=== PATIENT | female | born 1935 | race Caucasian/White ===

== ENCOUNTER → 2016-06-15 | Outpatient (CLI) | payer OTHER, MEDICARE ==
[~2016-06-15] MED LIST: CALCTAB7 PO; LEVO100T PO; LEVO112T2 PO; NSNN50; PRAV20TA PO; ZYRUNK
== END | disposition home or self-care (01) ==
LOC: C.LABVPSUW 09:41
PROVIDERS: ATTEND Internal Medicine Critical Care Medicine
DX: E03.9 Hypothyroidism, unspecified (principal)

== ENCOUNTER → 2017-06-15 | Outpatient (CLI) | payer OTHER, MEDICARE ==
[2017-06-15 09:26] LABS: BLOOD UREA NITROGEN 15 mg/dl (7-18); CALCIUM 8.7 mg/dl (8.5-10.1); CARBON DIOXIDE 26 mmol/L (21-32); GLUCOSE 92 mg/dl (70-99); POTASSIUM 3.7 mmol/L (3.5-5.1); SODIUM 138 mmol/L (136-145)
== END | disposition home or self-care (01) ==
LOC: C.LABVPSUW 08:59
PROVIDERS: ATTEND Internal Medicine Critical Care Medicine
DX: E03.9 Hypothyroidism, unspecified (principal); N28.9 Disorder of kidney and ureter, unspecified

== ENCOUNTER → 2017-12-20 | Outpatient (CLI) | payer OTHER, MEDICARE | END | disposition home or self-care (01) | LOC: C.LABVPSUW 08:28 | PROVIDERS: ATTEND Internal Medicine Critical Care Medicine | DX: E03.9 Hypothyroidism, unspecified (principal) ==

== ENCOUNTER 2018-05-16 14:50 | Inpatient (IN) ==
--- NOTE | 2018-05-16 15:54 | XRay Report ---
XR hip RT 2-3V w pelvis HISTORY: 82 years-old Female fall, right hip pain acute right-sided pain status post fall COMPARISON: None available TECHNIQUE: AP view of the pelvis with 2 views of the right hip FINDINGS: Demineralized appearance of the bones. 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 Degenerative changes of the pubic symphysis, SI joints and imaged lower lumbar spine. There is an acute transcervical fracture of the right femur with 8 mm superior lateral displacement and approx imately 9 mm cortical impaction. Mild adjacent soft tissue swelling. No acute dislocation. Soft tissu es are unremarkable. IMPRESSION: Acute mildly displaced and mildly impacted transcervical fracture of the right femur. The above report was generated using voice recognition software. It may contain grammatical, syntax o r spelling errors. Electronically signed by: Bharat Nieves M.D. 05/16/2018 3:52 PM
[2018-05-16] MEDS ORDERED: HYDROmorphone INJ 0.5 MG/0.5 ML SYR IV PRN ×2 (15:57)
[2018-05-16] MEDS ORDERED: SODIUM CHLORIDE 0.9% 1000ML 1,000 ML IV SCH (16:00)
[2018-05-16 16:24] LABS: Basophils # (auto) 0.05 K/uL (0-0.2); Basophils % (auto) 0.7 %; Eosinophils # (auto) 0.08 K/uL (0-0.5); Eosinophils % (auto) 1.1 %; Hematocrit (blood only) 38.4 % (37-47); Hemoglobin 12.5 g/dL (12.0-16.0); Immature Granulocytes # (auto) 0.02 K/uL (0.00-0.02); Immature Granulocytes % (auto) 0.3 %; Lymphocytes # (auto) 1.68 K/uL (1.2-3.4); Lymphocytes % (auto) 22.3 %; Mean Corpuscular Hgb Conc 32.6 g/dL (32-36); Mean Corpuscular Volume 89.1 fL (80-100); Mean Platelet Volume 8.3 fL (7.4-10.4); Monocytes % (auto) 5.3 %; Neutrophils # (auto) 5.31 K/uL (1.4-6.5); Neutrophils % (auto) 70.3 %; Platelet Count 366 K/uL (130-400); RDW Coefficient of Variation 14.4 % (11.5-14.5); RDW Standard Deviation 47.1 fL (36.4-46.3); Red Blood Count 4.31 M/uL (4.2-5.4); White Blood Count 7.54 K/uL (4.8-10.8)
[2018-05-16 16:31] LABS: BUN Creatinine Ratio 15.2 (10-20); Calcium 8.9 mg/dl (8.5-10.1); Creatinine Clr Calc Pharmacy 39.6 ml/min; Est GFR (African American) 69.5; Est GFR (Non-African American) 59.9; Potassium 3.9 mmol/L (3.5-5.1)
--- NOTE | 2018-05-16 16:41 | XRay Report ---
XR chest 1V portable HISTORY: 82 years-old Female fall acute chest trauma status post fall COMPARISON: None available TECHNIQUE: Portable semierect AP view of the chest FINDINGS: Cardiomediastinal and hilar silhouettes are within normal limits. Mild biapical pleural thickening/sc arring. No pneumothorax, pleural effusion or overt pulmonary edema. Ill-defined subsegmental opacitie s of the lateral left lung base and right cardiophrenic angle suggests atelectasis. No lobar airspace consolidation. Degenerative changes of the shoulders and spine. IMPRESSION: No acute process. The above report was generated using voice recognition software. It may contain grammatical, syntax o r spelling errors. Electronically signed by: Bharat Nieves M.D. 05/16/2018 4:40 PM
--- NOTE | 2018-05-16 16:42 | XRay Report ---
XR femur RT 2V routine CLINICAL HISTORY: fall, right hip fracture COMPARISON: Right hip radiographs performed earlier today. FINDINGS: Alignment of the displaced impacted right femoral neck fracture is similar to previous exa m. No additional right femoral fractures are noted. Alignment of the right knee is anatomic. No right knee joint effusion. No proximal right tibial or fibular fractures present. IMPRESSION: 1. Acute displaced right femoral neck fracture. 2. No additional right femoral fractures. No proximal right tibial or fibular fracture. Electronically signed by: Scott Gomez M.D. 05/16/2018 4:41 PM
--- NOTE | 2018-05-16 16:48 | History & Physical Report ---
Date of Service May 16, 2018 Assessment & Plan (1) Closed right hip fracture: - Admit to med/surg - Ortho consultation- [facility], Dr. Dc - Pain control with tylenol 1000 mg Q8H, morphine sulfate 0.25 mg IV Q2H prn for breakthrough pain. Bowel regimen, no chemical anticoagulation in anticipation of surgical procedure - Teds, scds to nonaffected leg - Preop ancef 2g IV ordered - NPO after midnight, pt last oral intake was at 11:00. - Maintain urinary catheter. - Labs are WNL - CXR appears clear - incentive spirometry ordered for possible atelectasis. No respiratory complaints. - EKG reviewed and without significant findings (2) HLD (hyperlipidemia): - Cont pravastatin - Check lipid panel with am labs for completeness (3) Hypothyroid: - Continue synthroid 100 mcg daily. (4) DVT prophylaxis: teds, scds, no chemical anticoagulation in the setting of surgical procedure. History of Present Illness Primary Care Provider: NO PCP This is a 82 yo F with PMHx of hypothyroidism, HLD, who presents after a mechanical fall. She was attempting a new form of exercise of beach volleyball at [facility] she [facility], and her sneaker caught on carpeted surface and she fell to the right and hit her head. Patient denies that she hit her head, LOC, other areas of trauma, laceration or abrasions. Patient denies feeling dizzy or lightheaded prior to the fall. Her daughter, Emy Rebecaluciano [place], is present at bedside and supports the history. The only medication to note that she takes daily is Synthroid and pravastatin. Patient notes she is was unable to bear weight on the right leg, and was brought in by EMS. Patient denies having any current pain. Pt typically ambulates without assistive devices, no history of smoking, has 2 ounces of wine nearly daily. He has no prior medical history including cardiac or pulmonary issues. Last time the patient was in the hospital was to give to her 56-year-old son. Allergies Allergy/AdvReac Type Severity Reaction Status Date / Time No Known Drug Allergies Allergy Unknown none Verified 06/08/15 09:45 Chlorine Allergy Unknown chest Uncoded 06/08/15 09:45 congetion, cough Home Medications Home Medications Medication Instructions Recorded Confirmed Type levothyroxine 100 mcg PO DAILY 05/16/18 05/16/18 History pravastatin 40 mg PO DAILY 05/16/18 05/16/18 History vit C-vit [id number] 1 cap PO DAILY 05/16/18 05/16/18 History [Ocuvite] Past Med/Surg History Medical History Closed right hip fracture (Acute) HLD (hyperlipidemia) Hypothyroid DVT prophylaxis Surgical History Frozen shoulder syndrome (Resolved) Social History Current Living Situation: Other Current Living Situation Comment: Independent living; [facility] current occupational status: retired Other Information That Helps Us Care for You: No Feels Safe at Home: Yes Safety Concerns: Feels Safe At This Time Smoking Status: Never smoker Do You Dip or Chew Tobacco: No Second Hand Exposure: No Hx Alcohol Use: Yes Alcohol type: wine Alcohol Intake Frequency: a few times a week Hx Substance Use: No Beliefs That Will Affect Care: None Preferred Language: [place] Communication Ability: Effective Biological Chemist Required: No Review of Systems Constitutional: No fever, sweats or chills Eyes: No diplopia, no worsening or blurred vision ENT: normal hearing, no trouble swallowing Respiratory: No cough, sputum, dyspnea at rest or on exertion Cardiovascular: No chest pain, tightness or palpitations Abdomen: No pain, nausea, vomiting, diarrhea or constipation Musculoskeletal: R hip pain well controlled, no other joint pain, calf pain, or swelling Neurologic: No weakness, numbness/tingling, or balance problems Psychiatric: No anxiety or depression Skin: No rash or itch Physical Exam 2 Vital Signs (Past 24 Hours): Last Vital Signs Temp 36.8 C 05/16/18 14:55 Pulse 80 05/16/18 16:15 Resp 16 05/16/18 16:15 BP 156/76 H 05/16/18 16:15 Pulse Ox 98 05/16/18 16:15 Physical Exam: General: awake, alert, no apparent distress Head: Normocephalic, atraumatic ENT: PERRL, EOMI, no pharyngeal exudate, mucous membranes moist Chest: Clear to auscultation, on room air, no adventitious breath sounds Cardiac: Regular rate and rhythm, no murmur, no JVD, normal peripheral pulses, good capillary refill Abdominal: NABS x 4 quadrants, soft, nontender to palpation, no rebound, guarding or tenderness, + schneider catheter in place draining clear yellow urine. Extremities: + R leg shortened and externally rotated, otherwise normal inspection, no peripheral edema or erythema, calfs nontender to palpation Psych: Normal mood and affect Neuro: AAO x 3, no gross motor deficits, RLE strength/ROM not assessed, speech is clear, no peripheral sensory deficits Results & Data Diagnostic Findings XR hip RT 2-3V w pelvis HISTORY: 82 years-old Female fall, right hip pain acute right-sided pain status post fall COMPARISON: None available TECHNIQUE: AP view of the pelvis with 2 views of the right hip FINDINGS: Demineralized appearance of the bones. Moderate osteoarthritis of the bilateral femoral acetabular joints. Degenerative changes of the pubic symphysis, SI joints and imaged lower lumbar spine. There is an acute transcervical fracture of the right femur with 8 mm superior lateral displacement and approximately 9 mm cortical impaction. Mild adjacent soft tissue swelling. No acute dislocation. Soft tissues are unremarkable. IMPRESSION: Acute mildly displaced and mildly impacted transcervical fracture of the right femur. XR femur RT 2V routine CLINICAL HISTORY: fall, right hip fracture COMPARISON: Right hip radiographs performed earlier today. FINDINGS: Alignment of the displaced impacted right femoral neck fracture is similar to previous exam. No additional right femoral fractures are noted. Alignment of the right knee is anatomic. No right knee joint effusion. No proximal right tibial or fibular fractures present. IMPRESSION: 1. Acute displaced right femoral neck fracture. 2. No additional right femoral fractures. No proximal right tibial or fibular fracture. XR chest 1V portable HISTORY: 82 years-old Female fall acute chest trauma status post fall COMPARISON: None available TECHNIQUE: Portable semierect AP view of the chest FINDINGS: Cardiomediastinal and hilar silhouettes are within normal limits. Mild biapical pleural thickening/scarring. No pneumothorax, pleural effusion or overt pulmonary edema. Ill-defined subsegmental opacities of the lateral left lung base and right cardiophrenic angle suggests atelectasis. No lobar airspace consolidation. Degenerative changes of the shoulders and spine. IMPRESSION: No acute process. ECG Additional Comments: 16-MAY-2018 16:09:09 [facility] Poor data quality, interpretation may be adversely affected Normal sinus rhythm with sinus arrhythmia Left ventricular hypertrophy with QRS widening Cannot rule out Septal infarct , age undetermined Abnormal ECG When compared with ECG of 05-MAR-2013 11:54, QRS duration has increased Minimal criteria for Septal infarct are now Present QT has lengthened Vent. rate 86 BPM WI interval 164 ms QRS duration 116 ms QT/QTc 404/483 ms P-R-T axes 68 -21 47 Code Status & VTE Plan Code Status DNR Supervising Physician Co-Signing Physician Notes Patient seen and examined, chart reviewed, case discussed with FABIENNE Ward and I agree with her assessment and plan as documented above. Briefly, patient is a healthy 82yo female with history of hypothyroidism s/p mechanical fall [place] today resulting in right hip fracture. Patient presently doing well, pain well controlled. Exam: afebrile, HD stable, NAD. Tenderness of right hip otherwise exam unremarkable Labs and images reviewed. Assessment/Plan: will admit to med-surge. Pain control. Orthopedic consultation - appreciate assistance with this case
[2018-05-16 17:11] LABS: INR 1.1 (0.9-1.1); Partial Thromboplastin Time 24.8 Seconds (21.0-31.0); Prothrombin Time 10.8 Seconds (9.0-12.0)
[2018-05-16 17:21] LABS: Appearance Urine Clear (Clear); Bilirubin Urine Negative (Negative); Color Urine Yellow; Glucose Urine UA Negative (Negative); Ketones Urine Negative (Negative); Leukocyte Esterase Urine Negative (Negative); Nitrite Urine Negative (Negative); Protein Urine Negative (Negative); Specific Gravity Urine 1.014 (1.000-1.030); Urobilinogen Urine Negative (Negative); pH Urine 6.5 (4.5-7.5)
[2018-05-16] MEDS ORDERED: SOD PHOSPHATE/SOD BIPHOSPHATE ENEMA 132 ML BTL PR PRN (18:48)
[2018-05-16] MEDS ORDERED: MAGNESIUM HYDROXIDE SUSP 30 ML UDC PO PRN (18:48)
[2018-05-16] MEDS ORDERED: MoRPHine SULFATE 2 MG/ML CARP IV PRN (18:48)
[2018-05-16] MEDS ORDERED: NALOXONE HCL 0.4 MG/1 ML VIAL/CARP IV PRN (18:48)
[2018-05-16] MEDS ORDERED: BISACODYL 10 MG SUPP PR PRN (18:48)
[2018-05-16] MEDS ORDERED: ONDANSETRON INJ 2 MG/ML 2 ML VIAL IV PRN (18:48)
--- NOTE | 2018-05-16 19:01 | Emergency Department Note ---
Entered by Brett Medellin acting as a scribe for ED Provider Note CHIEF COMPLAINT: Right hip pain HISTORY OF PRESENT ILLNESS: The patient is an 81 year old feamle who presents to the Emergency Room with complaints of constant pain in her right hip that began shorly prior to arrival following a falling episode. The patient states that she was walking earlier today when her "sneaker caught on the rug" and she was thrown forward. She notes pain in her right hip following the fall and she denies any other injuries. She rates the severity of her current pain as a 2/10. She did not hit her head or lose consciousness. Pt denies fevers, chills, diaphoresis, visual changes, neck pain, chest pain, breathing difficulties, nausea, vomiting, abdominal pain, back pain, melena, hematochezia, urinary symptoms, numbness, weakness, lymphadenopathy, rash, or other complaints. REVIEW OF SYSTEMS: See HPI for pertinent positives and negatives. A total of ten systems were reviewed and were otherwise negative. PMHx/PSHx: Hypothyroidism Renal insufficiency HLD SOCIAL HISTORY: Patient lives at home. PHYSICAL EXAM: GENERAL: Awake, alert, uncomfortable-appearing, in no distress HENT: Normocephalic, atraumatic. Oropharynx unremarkable. EYES: PERRL. Normal conjunctiva. Sclera non-icteric. NECK: Inspection normal. Non-tender. Supple. No nuchal rigidity. FROM. No masses. RESPIRATORY: Clear to auscultation. No wheezes. No rales. Normal respiratory effort. CARDIAC: Normal rate. Normal rhythm. No murmurs. No rubs. Extremities warm and well perfused. Pulses equal. No JVD. GI: Soft, non-distended. No tenderness to palpation. No rebound or guarding. No masses. RECTAL: Deferred. MUSCULOSKELETAL: Atraumatic. Chest examination reveals no tenderness. The back is symmetrical on inspection without obvious abnormality. There is no CVA tenderness to palpation. No joint edema. LOWER EXTREMITIES: Right hip tenderness on exam. The right leg is shortened. NEURO: Normal sensorium. No sensory or motor deficits noted. SKIN: No rash or jaundice noted. EMERGENCY DEPARTMENT COURSE: 1548: Past medical records reviewed. The patient was evaluated in room C12, and a complete history and physical examination were performed. 1617: I reviewed the patient's case with Dr. Dc [facility]. He will see the patient in consult. Asks I admit the patient to medicine. 1635: I reviewed the patient's case with Dr. Donato Barros [facility]. She will evaluate the patient for further management. MEDICAL DECISION MAKING: Prior records reviewed and summarized above. Triage Nursing notes reviewed and agree them. Additional history obtained from patient's daughter.. The patient's history was concerning for traumatic injury. Differential diagnosis: Etiologies such as fracture, dislocation, neurovascular compromise, compartment syndrome, soft tissue injury, as well as others were entertained. Physical examination: Consistent with an isolated hip injury. ER treatment provided: IV lock Patient declined analgesia NPO Bedrest On reassessment the patient felt better. Diagnostics interpreted by me: ECG: No acute ischemia The labs revealed an unremarkable CBC, coags, and chemistry panel. Imaging studies: Xrays as above. The patient has an isolated hip fracture and will need admission to the hospital. Consultation: A consultation was placed with orthopedics. The case was discussed and diagnostics were reviewed. Internal medicine admission and preoperative clearance was recommended. Consultation was placed with internal medicine. The patient was evaluated in the ER for further treatment. IMPRESSION: Right hip fracture. PLAN: Admitted to [facility] hospitalist service. The scribe's documentation has been prepared under my direction and personally reviewed by me in its entirety. I confirm that the note above accurately reflects all work, treatment, procedures, and medical decision making performed by me. Impression & Plan Closed fracture of right hip Past Med/Surg History Medical History Closed right hip fracture (Acute) HLD (hyperlipidemia) Hypothyroid DVT prophylaxis Surgical History Frozen shoulder syndrome (Resolved) Social History Current Living Situation: Spouse Current Living Situation Comment: [place] current occupational status: retired Feels Safe at Home: Yes Smoking Status: Never smoker Results & Data Vital Signs Vital Signs - 24 hr 05/16/18 14:55 05/16/18 16:15 05/16/18 18:01 Temperature 36.8 C Temperature Source Oral Sepsis Recent Fever Within 48 Hours No Sepsis New/Unexplained Change in Mental Status No Sepsis Action Taken by Nursing No Action Required Pulse Rate 95 H Pulse Rate [Apical] 80 68 Pulse Rhythm Regular Pulse Rhythm [Apical] Regular Regular Pulse Strength Normal Pulse Strength [Apical] Normal Normal Respiratory Rate 16 16 16 Respiratory Effort / Characteristics Non-Labored Spontaneous Non-Labored Spontaneous Non-Labored Spontaneous Respiratory Depth Normal Normal Normal Respiratory Pattern Regular Regular Regular Blood Pressure 150/77 H Blood Pressure [Right Arm] 156/76 H 150/79 H Blood Pressure Mean 101 Blood Pressure Mean [Right Arm] 102 102 Blood Pressure Position Lying Blood Pressure Position [Right Arm] Lying Lying Pulse Oximetry 95 98 96 Oxygen Delivery Method Room Air Room Air Room Air Home Medications Current Medication List: was personally reviewed by me Laboratory Data Attestation: I reviewed the patient's lab results. Result diagrams: 05/16/18 15:00 05/16/18 15:00 Lab Results 05/16/18 05/16/18 05/16/18 Range/Units 15:00 15:00 16:25 WBC 7.54 (4.8-10.8) K/uL RBC 4.31 (4.2-5.4) M/uL Hgb 12.5 (12.0-16.0) g/dL Hct 38.4 (37-47) % MCV 89.1 (80-100) fL MCH 29.0 (25-34) pg MCHC 32.6 (32-36) g/dL RDW Std Deviation 47.1 H (36.4-46.3) fL RDW Coeff of Maya 14.4 (11.5-14.5) % Plt Count 366 (130-400) K/uL MPV 8.3 (7.4-10.4) fL Immature Gran % (Auto) 0.3 % Neut % (Auto) 70.3 % Lymph % (Auto) 22.3 % Floyd % (Auto) 5.3 % Eos % (Auto) 1.1 % Baso % (Auto) 0.7 % Immature Gran # (Auto) 0.02 (0.00-0.02) K/uL Neut # (Auto) 5.31 (1.4-6.5) K/uL Lymph # (Auto) 1.68 (1.2-3.4) K/uL Floyd # (Auto) 0.40 (0.11-0.59) K/uL Eos # (Auto) 0.08 (0-0.5) K/uL Baso # (Auto) 0.05 (0-0.2) K/uL PT 10.8 (9.0-12.0) Seconds INR 1.1 (0.9-1.1) APTT 24.8 (21.0-31.0) Seconds PTT Ratio 1.0 Sodium 139 (136-145) mmol/L Potassium 3.9 (3.5-5.1) mmol/L Chloride 105 (98-107) mmol/L Carbon Dioxide 26 (21-32) mmol/L Anion Gap 8.0 (3-11) BUN 14 (7-18) mg/dl Creatinine 0.89 (0.6-1.2) mg/dl Est Cr Clr Drug Dosing 39.6 ml/min Est GFR ( Amer) 69.5 Est GFR (Non-Af Amer) 59.9 BUN/Creatinine Ratio 15.2 (10-20) Glucose 102 H (70-99) mg/dl Calcium 8.9 (8.5-10.1) mg/dl Urine Color Urine Appearance (Clear) Urine pH (4.5-7.5) Ur Specific Leivasy (1.000-1.030) Urine Protein (Negative) Urine Glucose (UA) (Negative) Urine Ketones (Negative) Urine Blood (Negative) Urine Nitrite (Negative) Urine Bilirubin (Negative) Urine Urobilinogen (Negative) Ur Leukocyte Esterase (Negative) Blood Type Antibody Screen 05/16/18 05/16/18 Range/Units 16:25 17:09 WBC (4.8-10.8) K/uL RBC (4.2-5.4) M/uL Hgb (12.0-16.0) g/dL Hct (37-47) % MCV (80-100) fL MCH (25-34) pg MCHC (32-36) g/dL RDW Std Deviation (36.4-46.3) fL RDW Coeff of Maya (11.5-14.5) % Plt Count (130-400) K/uL MPV (7.4-10.4) fL Immature Gran % (Auto) % Neut % (Auto) % Lymph % (Auto) % Floyd % (Auto) % Eos % (Auto) % Baso % (Auto) % Immature Gran # (Auto) (0.00-0.02) K/uL Neut # (Auto) (1.4-6.5) K/uL Lymph # (Auto) (1.2-3.4) K/uL Floyd # (Auto) (0.11-0.59) K/uL Eos # (Auto) (0-0.5) K/uL Baso # (Auto) (0-0.2) K/uL PT (9.0-12.0) Seconds INR (0.9-1.1) APTT (21.0-31.0) Seconds PTT Ratio Sodium (136-145) mmol/L Potassium (3.5-5.1) mmol/L Chloride (98-107) mmol/L Carbon Dioxide (21-32) mmol/L Anion Gap (3-11) BUN (7-18) mg/dl Creatinine (0.6-1.2) mg/dl Est Cr Clr Drug Dosing ml/min Est GFR ( Amer) Est GFR (Non-Af Amer) BUN/Creatinine Ratio (10-20) Glucose (70-99) mg/dl Calcium (8.5-10.1) mg/dl Urine Color Yellow Urine Appearance Clear (Clear) Urine pH 6.5 (4.5-7.5) Ur Specific Leivasy 1.014 (1.000-1.030) Urine Protein Negative (Negative) Urine Glucose (UA) Negative (Negative) Urine Ketones Negative (Negative) Urine Blood Negative (Negative) Urine Nitrite Negative (Negative) Urine Bilirubin Negative (Negative) Urine Urobilinogen Negative (Negative) Ur Leukocyte Esterase Negative (Negative) Blood Type A Positive Antibody Screen NEGATIVE Administered Medications Discontinued Medications Hydromorphone HCl (Dilaudid) 0.25 mg IV Q20M PRN PRN Reason: Moderate Pain (Rating 3,4,5,6) Stop: 05/30/18 15:56 Last Admin: 05/16/18 18:25 Dose: 0.25 mg Sodium Chloride (Nss 1000ml) 1,000 mls @ 150 mls/hr IV .[id number] YESICA Stop: 05/16/18 22:39 Last Admin: 05/16/18 16:14 Dose: 150 mls/hr Imaging Data Attestation: I personally reviewed and interpreted this imaging study as follows : Radiologist's Impression: XR femur RT 2V routine CLINICAL HISTORY: fall, right hip fracture COMPARISON: Right hip radiographs performed earlier today. FINDINGS: Alignment of the displaced impacted right femoral neck fracture is similar to previous exam. No additional right femoral fractures are noted. Alignment of the right knee is anatomic. No right knee joint effusion. No proximal right tibial or fibular fractures present. IMPRESSION: 1. Acute displaced right femoral neck fracture. 2. No additional right femoral fractures. No proximal right tibial or fibular fracture. Electronically signed by: Scott Gomez M.D. 05/16/2018 4:41 PM XR chest 1V portable HISTORY: 82 years-old Female fall acute chest trauma status post fall COMPARISON: None available TECHNIQUE: Portable semierect AP view of the chest FINDINGS: Cardiomediastinal and hilar silhouettes are within normal limits. Mild biapical pleural thickening/scarring. No pneumothorax, pleural effusion or overt pulmonary edema. Ill-defined subsegmental opacities of the lateral left lung base and right cardiophrenic angle suggests atelectasis. No lobar airspace consolidation. Degenerative changes of the shoulders and spine. IMPRESSION: No acute process. The above report was generated using voice recognition software. It may contain grammatical, syntax or spelling errors. Electronically signed by: Bharat Nieves M.D. 05/16/2018 4:40 PM XR hip RT 2-3V w pelvis HISTORY: 82 years-old Female fall, right hip pain acute right-sided pain status post fall COMPARISON: None available TECHNIQUE: AP view of the pelvis with 2 views of the right hip FINDINGS: Demineralized appearance of the bones. Moderate osteoarthritis of the bilateral femoral acetabular joints. Degenerative changes of the pubic symphysis, SI joints and imaged lower lumbar spine. There is an acute transcervical fracture of the right femur with 8 mm superior lateral displacement and approximately 9 mm cortical impaction. Mild adjacent soft tissue swelling. No acute dislocation. Soft tissues are unremarkable. IMPRESSION: Acute mildly displaced and mildly impacted transcervical fracture of the right femur. The above report was generated using voice recognition software. It may contain grammatical, syntax or spelling errors. Electronically signed by: Bharat Nieves M.D. 05/16/2018 3:52 PM ECG Data Attestation: I personally reviewed and interpreted this ECG as follows: Indication: other (Trauma) Rate (beats per minute): 86 Rhythm: sinus with SA Findings: + Q waves (Septal); no PVC, no ST depression and no ST elevation Blood Pressure Blood Pressure Findings: Elevated blood pressure Blood Pressure Disposition: further management by hospitalist Discharge Plan Visit Data *Final* Discharge Date/Time: 05/16/18 18:28 Chief Complaint: Hip Pain ED Provider: Italo Elise Discharge Problem: Closed fracture of right hip Patient Disposition: Being Evaluated by Hospitalist Discharge Instructions Interventions: ED Discharge Assessment Last Done: 05/16/18 18:28 The scribe's documentation has been prepared under my direction and personally reviewed by me in its entirety. I confirm that the note above accurately reflects all work, treatment, procedures, and medical decision making performed by me.
[2018-05-16] MEDS: LACTATED RINGER'S 1,000 ML IV SCH (20:09)
[2018-05-16] MEDS: OXYCODONE HCL IR 5 MG TAB (IMMEDIATE RELEASE) PO PRN (20:38)
[2018-05-16] MEDS: ACETAMINOPHEN 500 MG TAB PO SCH (21:04)
[2018-05-16] MEDS: DOCUSATE SODIUM/SENNA 50/8.6MG TAB PO SCH (21:04)
[2018-05-17] MEDS ORDERED: CEFAZOLIN 1000MG 1,000 MG/7.5 ML SYR IV SCH (02:00)
[2018-05-17] MEDS: OXYCODONE HCL IR 5 MG TAB (IMMEDIATE RELEASE) PO PRN ×2 (02:30→09:40)
[2018-05-17] MEDS: LEVOTHYROXINE SODIUM 100 MCG TABLET PO SCH (05:46)
[2018-05-17] MEDS: ACETAMINOPHEN 500 MG TAB PO SCH ×3 (05:46→21:56)
[2018-05-17] MEDS ORDERED: ROPIVACAINE 0.5% HCL/PF 150 MG, BUPIVACAINE 0.5% MPF 30 ML, EPINEPHrine 0.15 MG, Ketoro... INFIL SCH (06:00)
[2018-05-17] MEDS ORDERED: CEFAZOLIN 2000MG 2,000 MG/15 ML SYR IV SCH (06:00)
[2018-05-17] MEDS ORDERED: BUPIVACAINE 0.5 % 5 MG/1 ML PF 10ML VIAL ONE (06:34)
[2018-05-17] MEDS: LACTATED RINGER'S 1,000 ML IV SCH (07:12)
[2018-05-17 07:30] LABS: Hematocrit (blood only) 37.4 % (37-47); Hemoglobin 12.5 g/dL (12.0-16.0); Mean Corpuscular Hgb Conc 33.4 g/dL (32-36); Mean Corpuscular Volume 87.4 fL (80-100); Mean Platelet Volume 8.5 fL (7.4-10.4); Platelet Count 313 K/uL (130-400); RDW Coefficient of Variation 14.3 % (11.5-14.5); RDW Standard Deviation 45.5 fL (36.4-46.3); Red Blood Count 4.28 M/uL (4.2-5.4); White Blood Count 12.53 K/uL (4.8-10.8)
[2018-05-17 07:38] LABS: INR 1.1 (0.9-1.1); Prothrombin Time 11.1 Seconds (9.0-12.0)
[2018-05-17 08:08] LABS: Albumin Level 3.1 gm/dl (3.4-5.0); BUN Creatinine Ratio 18.4 (10-20); Calcium 8.7 mg/dl (8.5-10.1); Creatinine Clr Calc Pharmacy 58.8 ml/min; Est GFR (African American) 97.7; Est GFR (Non-African American) 84.3; Potassium 3.5 mmol/L (3.5-5.1)
[2018-05-17 08:11] LABS: Albumin Globulin Ratio 0.8 (0.9-2); Bilirubin,Total 0.7 mg/dl (0.2-1); Globulin 3.9 gm/dl (2.5-4.0)
[2018-05-17] MEDS: CALCIUM 600MG + VIT D 400 IU TAB PO SCH (08:30)
[2018-05-17] MEDS: PRAVASTATIN SOD 20 MG TAB PO SCH (08:31)
--- NOTE | 2018-05-17 10:19 | Anesthesiology Consultation ---
Date of Service May 17, 2018 Assessment & Plan (1) Encounter for pre-operative examination: Chart Review Chart Review: Acceptable Risk for Surgery and Patient NOT seen in Pre Admission Testing Consults Requested none NPO Date Last Intake of Fluids: 05/16/18 Time Last Intake of Fluids: 19:00 Date Last Intake of Solids: 05/16/18 Time Last Intake of Solids: 19:00 History Surgery Operation Date: 05/17/18 08:10 Proposed Procedures p Right Bipolar Hip Prosthesis Calli Dc DO Height/Weight Height: 5 ft 3 in Weight: 59.1 kg Allergies Allergy/AdvReac Type Severity Reaction Status Date / Time No Known Drug Allergies Allergy Unknown none Verified 06/08/15 09:45 Chlorine Allergy Unknown chest Uncoded 06/08/15 09:45 congetion, cough Medications Home Medications Medication Instructions Recorded Confirmed Last Taken levothyroxine 100 mcg PO DAILY 05/16/18 05/16/18 05/16/18 pravastatin 40 mg PO DAILY 05/16/18 05/16/18 05/16/18 vit C-vit [id number] 1 cap PO DAILY 05/16/18 05/16/18 05/16/18 [Ocuvite] Active Medications Generic Name Dose Route Start Last Admin Trade Name Freq PRN Reason Stop Dose Admin Acetaminophen 1,000 mg 05/16/18 22:00 05/17/18 05:46 Tylenol PO 06/15/18 21:59 1,000 mg Q8H YESICA Administration Lactated Ringer's 1,000 mls @ 80 mls/hr 05/16/18 18:48 05/17/18 07:12 Lr IV 05/17/18 18:47 80 mls/hr .[id number] YESICA Administration Levothyroxine Sodium 100 mcg 05/17/18 06:30 05/17/18 05:46 Synthroid PO 06/16/18 06:29 100 mcg [id number] YESICA Administration Multivitamins/Minerals 1 tab 05/17/18 09:00 05/17/18 08:30 Caltrate Plus PO 06/16/18 08:59 1 tab DAILY YESICA Administration Oxycodone HCl 5 mg 05/16/18 18:48 05/17/18 09:40 Roxicodone Immediate Rel PO 05/30/18 18:47 5 mg Q4H PRN Administration moderate pain (scale 4-6) Pravastatin Sodium 20 mg 05/17/18 09:00 05/17/18 08:31 Pravachol PO 06/16/18 08:59 20 mg DAILY YESICA Administration Senna/Docusate Sodium 2 tab 05/16/18 21:00 05/16/18 21:04 Senokot S PO 06/15/18 20:59 2 tab HS YESICA Administration Past Medical History Medical History Closed right hip fracture (Acute) HLD (hyperlipidemia) Hypothyroid DVT prophylaxis Past Surgical History Surgical History Frozen shoulder syndrome (Resolved) Social History Smoking Status: Never smoker Do You Dip or Chew Tobacco: No Hx Alcohol Use: Yes Alcohol type: wine alcohol intake frequency: a few times a week Alcohol Intake Frequency Comment: Less than 4 oz when she does drink Hx Substance Use: No substance use type: does not use Physical Exam Vital Signs Last Vital Signs Temp 36.7 C 05/17/18 07:07 Pulse 82 05/17/18 07:07 Resp 16 05/17/18 07:07 BP 156/82 H 05/17/18 07:07 Pulse Ox 95 05/17/18 07:07 Testing Electrocardiogram Date: 05/16/18 Findings: + NSR @ (89), + LVH and + pertinent finding (Widened QRS) Chest X-Ray Date: 05/16/18 Findings: + NAD Laboratory Results 05/17/18 07:12 05/17/18 07:12 Blood Type A Positive 05/16/18 16:25 Antibody Screen NEGATIVE 05/16/18 16:25 PT 11.1 Seconds (9.0-12.0) 05/17/18 07:12 INR 1.1 (0.9-1.1) 05/17/18 07:12 APTT 24.8 Seconds (21.0-31.0) 05/16/18 16:25 Urine Color Yellow 05/16/18 17:09 Urine Appearance Clear (Clear) 05/16/18 17:09 Urine pH 6.5 (4.5-7.5) 05/16/18 17:09 Ur Specific Sid[place] 1.014 (1.000-1.030) 05/16/18 17:09 Urine Protein Negative (Negative) 05/16/18 17:09 Urine Glucose (UA) Negative (Negative) 05/16/18 17:09 Urine Ketones Negative (Negative) 05/16/18 17:09 Urine Nitrite Negative (Negative) 05/16/18 17:09 Ur Leukocyte Esterase Negative (Negative) 05/16/18 17:09
--- NOTE | 2018-05-17 11:07 | Orthopedic Consultation ---
Date of Consultation May 17, 2018 Assessment & Plan (1) Closed fracture of right hip: X-rays have been reviewed and it appears the patient will benefit from a bipolar hemiarthroplasty. Patient has been medically cleared and added on to the surgical schedule for Dr. Dc. I have indicated the patient for right hip hemiarthroplasty. I explained the risks, benefits, complications the patient and daughter who were present at bedside. These include however not limited to infections, acute blood loss, blood clots, injury to surrounding nerves, bone, vessels, soft tissue, arthrofibrosis, chronic pain, failure of the prosthesis, need for additional surgery, cardiac and pulmonary events and . The patient and family wish to proceed with surgical intervention at this time and informed consent was obtained. History of Present Illness Reason for Consultation: Right hip fracture Attending Physician: Jim Abreu MD, PhD, [facility] History of Present Illness 89-year-old white female who resides at the [facility] at [facility]. She states that she was in the process of doing some exercises there at her place of residence. She caught the toe of her shoe on the carpet lost her balance and fell to the floor onto her right hip. She denies any dizziness or lightheadedness or chest pain prior to or after the fall. After the fall, she had moderate pain in the right hip and groin and was unable to ambulate. Patient currently denies hitting her head and denies pain anywhere else in the extremities other than her right hip. She was brought to the emergency room and seen by the staff. X-rays were taken. It was found that she had a displaced right femoral neck fracture. We have been consulted to take care of her hip fracture at this time. Allergies Allergy/AdvReac Type Severity Reaction Status Date / Time No Known Drug Allergies Allergy Unknown none Verified 06/08/15 09:45 Chlorine Allergy Unknown chest Uncoded 06/08/15 09:45 congetion, cough Home Medications Home Medications Medication Instructions Recorded Confirmed Type levothyroxine 100 mcg PO DAILY 05/16/18 05/16/18 History pravastatin 40 mg PO DAILY 05/16/18 05/16/18 History vit C-vit [id number]-om-3 1 cap PO DAILY 05/16/18 05/16/18 History [Ocuvite] Patient History Medical History Closed right hip fracture (Acute) HLD (hyperlipidemia) Hypothyroid DVT prophylaxis Surgical History Frozen shoulder syndrome (Resolved) Social History marital status: Current Living Situation: Other Current Living Situation Comment: Independent living; the [facility] at [facility] current occupational status: retired Other Information That Helps Us Care for You: No Feels Safe at Home: Yes Safety Concerns: Feels Safe At This Time Smoking Status: Never smoker Do You Dip or Chew Tobacco: No Hx Alcohol Use: Yes Alcohol type: wine Alcohol Intake Frequency: a few times a week Hx Substance Use: No Beliefs That Will Affect Care: None Communication Ability: Effective Review of Systems As per admitting history and physical. She otherwise denies no recent fevers or chills. She states that she was getting over a cold but denies any increased sputum production. Denies increased cough or shortness of breath. Denies chest pressure, chest pain, irregular heartbeat. Denies any abdominal pain at this time. Denies unusual nausea vomiting or diarrhea. Denies hematemesis or hematochezia or melena. Denies hematuria, pyuria, dysuria. Denies history of CVA or TIA. Physical Exam 2 Vital Signs (Past 24 Hours): Last Vital Signs Temp 36.7 C 05/17/18 07:07 Pulse 82 05/17/18 07:07 Resp 16 05/17/18 07:07 BP 156/82 H 05/17/18 07:07 Pulse Ox 95 05/17/18 07:07 Physical Exam: Exam is focusing on the right lower extremity at this time. The right lower extremity is elevated up on one pillow under the knee. She denies pain in the right ankle or toes and denies pain in the right knee. She has good range of motion of her toes and right ankle at this time. No range of motion is done with the knee at this time due to hip fracture. She has some mild pain on palpation over the lateral aspect of the right hip but there is no area of ecchymosis or swelling that I can appreciate at this time. Sensation is completely intact to the right lower extremity. She denies any pain in the left lower extremity and has good range of motion of the left hip, knee, and ankle. Examination of her upper extremities proves to be benign. She has good range of motion of both upper extremities at this time and denies any discomfort at the shoulders elbows and wrist. She denies pain on palpation of the neck at this time and has good range of motion. She denies any pain in the thoracic or low back region. There is no gross motor or sensory loss seen at this time other than due to right hip fracture with lack of range of motion of her right hip. Capillary refill appears to be less than 2 seconds with upper and lower extremities. _ (1) Closed fracture of right hip Encounter type: initial encounter Fracture healing: Qualified Code(s): S72.001A - Fracture of unspecified part of neck of right femur, initial encounter for closed fracture
--- NOTE | 2018-05-17 11:22 | Hospitalist Progress Note ---
Date of Service May 17, 2018 Assessment & Plan (1) Closed right hip fracture: (2) HLD (hyperlipidemia): (3) Hypothyroid: (4) DVT prophylaxis: 82 yo F with PMHx of hypothyroidism, HLD, admitted on May 16, 2018 because of closed right hip fracture associated with mechanical fall. Closed right hip fracture: Dyslipidemia, cont pravastatin Hypothyroid: Continue synthroid 100 mcg daily. Orthopedic input appreciated, plan OR today, Continue pain control with tylenol 1000 mg Q8H, morphine sulfate 0.25 mg IV Q2H prn for breakthrough pain. Continue urinary catheter. Discussed with patient and patient's daughter who is a physician in his hospital regarding patient condition and risk and benefit, they understand and willing to take on a risks Will have PT OT, and social service worker for discharge plan, Subjective Mild lethargic after pain medication however pain is well controlled, conversational, awake alert orientated, no any complaint, Review of Systems Constitutional: Mild positive weakness, or fatigue Respiratory: no cough, sputum, wheezing, or dyspnea on exertion Cardiac: No chest pain, No orthopnea, Abdomen: No pain, No nausea, No vomiting, No diarrhea, Musculoskeletal: Right hip with limited range of motion because of pain, no calf pain, No problem reported : No dysuria, No urinary frequency, No incontinence, No hematuria Neurologic: No paralysis, No weakness, No numbness/tingling, No vertigo, No balance problems Psychiatric: No depression symptoms, No anhedonism, No anxiety, No insomnia, No substance abuse Heme: No abnormal bleeding/bruising, No clotting problems, No swollen lymph nodes, No night sweats Skin: No rash, No itch, No new/changing skin lesions, No color change, No bleeding Physical Exam 2 Vital Signs (Past 24 Hours): Last Vital Signs Temp 36.7 C 05/17/18 07:07 Pulse 82 05/17/18 07:07 Resp 16 05/17/18 07:07 BP 156/82 H 05/17/18 07:07 Pulse Ox 95 05/17/18 07:07 Physical Exam: General Appearance: WD/WN, no apparent distress, Eyes: normal inspection, PERRL, EOMI, sclerae normal ENT: normal ENT inspection, hearing grossly normal, pharynx normal Neck: supple, no adenopathy, thyroid normal, no JVD, no carotid bruits, trachea midline Respiratory/Chest: chest non-tender, normal breath sounds, no respiratory distress, no accessory muscle use, breath sounds, rales, wheezing Cardiovascular: regular rate, rhythm, no JVD, no murmur Abdomen: normal bowel sounds, non tender, soft, no organomegaly, Almodovar catheter in place, Extremities: Right hip limited range of motion because of pain, otherwise other joint non-tender, normal inspection, no pedal edema, no calf tenderness, normal capillary refill , pelvis stable, joint has no limited range of motion, capillary refill is normal, Neurologic/Psychiatric: general manager II-XII nml as tested, no motor/sensory deficits, alert, normal mood/affect, oriented x 3 Skin: normal color, warm/dry, no rash Lymphatic: no adenopathy Results & Data Laboratory Results Laboratory Results - last 24 hr 05/16/18 05/16/18 05/16/18 15:00 15:00 16:25 WBC 7.54 RBC 4.31 Hgb 12.5 Hct 38.4 MCV 89.1 MCH 29.0 MCHC 32.6 RDW Std Deviation 47.1 H RDW Coeff of Maya 14.4 Plt Count 366 MPV 8.3 Immature Gran % (Auto) 0.3 Neut % (Auto) 70.3 Lymph % (Auto) 22.3 Lyon % (Auto) 5.3 Eos % (Auto) 1.1 Baso % (Auto) 0.7 Immature Gran # (Auto) 0.02 Neut # (Auto) 5.31 Lymph # (Auto) 1.68 Lyon # (Auto) 0.40 Eos # (Auto) 0.08 Baso # (Auto) 0.05 PT 10.8 INR 1.1 APTT 24.8 PTT Ratio 1.0 Sodium 139 Potassium 3.9 Chloride 105 Carbon Dioxide 26 Anion Gap 8.0 BUN 14 Creatinine 0.89 Est Cr Clr Drug Dosing 39.6 Est GFR ( Amer) 69.5 Est GFR (Non-Af Amer) 59.9 BUN/Creatinine Ratio 15.2 Glucose 102 H Calcium 8.9 Total Bilirubin AST ALT Alkaline Phosphatase Total Protein Albumin Globulin Albumin/Globulin Ratio 25-OH Vitamin D Total Urine Color Urine Appearance Urine pH Ur Specific [place] Urine Protein Urine Glucose (UA) Urine Ketones Urine Blood Urine Nitrite Urine Bilirubin Urine Urobilinogen Ur Leukocyte Esterase Blood Type Antibody Screen 05/16/18 05/16/18 05/17/18 16:25 17:09 07:12 WBC RBC Hgb Hct MCV MCH MCHC RDW Std Deviation RDW Coeff of Maya Plt Count MPV Immature Gran % (Auto) Neut % (Auto) Lymph % (Auto) Lyon % (Auto) Eos % (Auto) Baso % (Auto) Immature Gran # (Auto) Neut # (Auto) Lymph # (Auto) Lyon # (Auto) Eos # (Auto) Baso # (Auto) PT INR APTT PTT Ratio Sodium Potassium Chloride Carbon Dioxide Anion Gap BUN Creatinine Est Cr Clr Drug Dosing Est GFR ( Amer) Est GFR (Non-Af Amer) BUN/Creatinine Ratio Glucose Calcium Total Bilirubin AST ALT Alkaline Phosphatase Total Protein Albumin Globulin Albumin/Globulin Ratio 25-OH Vitamin D Total 15.5 L Urine Color Yellow Urine Appearance Clear Urine pH 6.5 Ur Specific [place] 1.014 Urine Protein Negative Urine Glucose (UA) Negative Urine Ketones Negative Urine Blood Negative Urine Nitrite Negative Urine Bilirubin Negative Urine Urobilinogen Negative Ur Leukocyte Esterase Negative Blood Type A Positive Antibody Screen NEGATIVE 05/17/18 05/17/18 05/17/18 07:12 07:12 07:12 WBC 12.53 H RBC 4.28 Hgb 12.5 Hct 37.4 MCV 87.4 MCH 29.2 MCHC 33.4 RDW Std Deviation 45.5 RDW Coeff of Maya 14.3 Plt Count 313 MPV 8.5 Immature Gran % (Auto) Neut % (Auto) Lymph % (Auto) Lyon % (Auto) Eos % (Auto) Baso % (Auto) Immature Gran # (Auto) Neut # (Auto) Lymph # (Auto) Lyon # (Auto) Eos # (Auto) Baso # (Auto) PT 11.1 INR 1.1 APTT PTT Ratio Sodium 133 L Potassium 3.5 Chloride 101 Carbon Dioxide 24 Anion Gap 8.0 BUN 11 Creatinine 0.60 Est Cr Clr Drug Dosing 58.8 Est GFR ( Amer) 97.7 Est GFR (Non-Af Amer) 84.3 BUN/Creatinine Ratio 18.4 Glucose 103 H Calcium 8.7 Total Bilirubin 0.7 AST 17 ALT 20 Alkaline Phosphatase 56 Total Protein 7.0 Albumin 3.1 L Globulin 3.9 Albumin/Globulin Ratio 0.8 L 25-OH Vitamin D Total Urine Color Urine Appearance Urine pH Ur Specific [place] Urine Protein Urine Glucose (UA) Urine Ketones Urine Blood Urine Nitrite Urine Bilirubin Urine Urobilinogen Ur Leukocyte Esterase Blood Type Antibody Screen
[2018-05-17] MEDS ORDERED: POVIDONE-IODINE OP SOLN 30 ML BTL ONE (14:58)
[2018-05-17] MEDS ORDERED: BACITRACIN INJ 50,000 UNIT VIAL ONE (14:58)
[2018-05-17] MEDS ORDERED: ORTHO JOINT ANESTHETIC ONE (14:58)
[2018-05-17] MEDS ORDERED: ePHEDrine sulfate 50 MG/ML AMP IV PRN (15:15)
[2018-05-17] MEDS ORDERED: ONDANSETRON INJ 2 MG/ML 2 ML VIAL IV PRN (15:15)
[2018-05-17] MEDS ORDERED: fentaNYL citrate 100 MCG/2 ML VIAL IV PRN (15:15)
[2018-05-17] MEDS ORDERED: ATROPINE SULFATE 0.1 MG/ML 5ML SYR IV PRN (15:15)
[2018-05-17] MEDS ORDERED: PROPOFOL IV EMULSION 10 MG/ML 20 ML VIAL IV ONE (15:18)
[2018-05-17] MEDS ORDERED: fentaNYL citrate 100 MCG/2 ML VIAL ONE (15:18)
[2018-05-17] MEDS ORDERED: MIDAZOLAM HCL 1 MG/ML 2ML VIAL ONE (15:18)
--- NOTE | 2018-05-17 15:21 | History & Physical Bridge Note ---
Date of Service May 17, 2018 History & Physical Bridge Note I have examined the patient, reviewed the History & Physical and in the interval since the performance of the History & Physical I have noted the following changes of clinical significance: no changes noted
--- NOTE | 2018-05-17 17:29 | Post Operative Brief Note ---
Immediate Post Op Note v1 Date of Surgery May 17, 2018 Pre & Post Diagnosis Operation Date: 05/17/18 08:10 Pre-Op Diagnosis: Closed right hip fracture Post-Op Diagnosis: Closed right hip fracture Procedure Operation Date: 05/17/18 08:10 Actual Procedures p Right Bipolar Hip Prosthesis Calli, cemented (Right) - Giancarlo Dc DO Surgeon Giancarlo Dc DO Pst Manager Taz Matos Estimated Blood Loss 125 Findings Consistent with Post-Op Diagnosis Fluids 1200 Specimens femoral head Anesthesia Type Spinal Complications none Disposition Disposition: Recovery Room Overlapping Procedure I was present for: the critical portions of procedure. I was immediately available: during the entire case. Back up surgeon: was not required during procedure.
--- NOTE | 2018-05-17 17:41 | Operative Report ---
Post Operative Report Pre & Post Diagnosis Operation Date: 05/17/18 08:10 Pre-Op Diagnosis: Closed right hip fracture Post-Op Diagnosis: Closed right hip fracture Procedure Operation Date: 05/17/18 08:10 Actual Procedures p Right Bipolar Hip Prosthesis Calli, cemented (Right) - Giancarlo Dc DO Surgeon Giancarlo Dc DO Pressroom Foreman Taz Matos Estimated Blood Loss 125 Findings Consistent with Post-Op Diagnosis Fluids 1200 Specimens Femoral head Anesthesia Type Spinal Complications none Disposition Disposition: Recovery Room Indications The patient is a 82-year-old female with displaced right femoral neck fracture sustained after a fall from standing height. The patient was medically stabilized on 05/17/2018. I indicated the patient for right hip hemiarthroplasty. The patient and family was informed of the risks and benefits of surgery, which include but not limited to infection, bleeding, blood clots, damage to nerves, vessels, bone and soft tissue, dislocation, leg length discrepancy, need for additional surgery and . The the patient and family collectively chose to move forward with surgical intervention and informed consent was obtained. Description of Procedure Following induction of adequate spinal anesthesia, the patient was transferred to the OR table and placed in the lateral decubitus position with left hip down. The right hip was prepped and draped in usual sterile manner. A posteriorlateral incision was made. Subcutaneous tissue was sharply dissected. Electro cautery was used for hemostasis. Fascia was incised throughout the length of the wound and the piriformis was identified. A #1 Vicryl suture was used to tage the piriformis. The short external rotators were divided from the posterior aspect of the femur and a capsulotomy was performed. A second #1 Vicryl suture was used to tag the capsule. Next, I turned my attention to the femoral neck fracture. The fracture was relatively high on the calcar and decision was made to proceed with the oscillating saw and create the calcar osteotomy. This bone fragment was removed. Following this, tenaculum and cob elevater was utilized to remove the femoral head. The head was measured on the back table and the 44 mm femoral head was chosen as the size to be used. Next, attention was turned to the acetabulum which was found to have no significant arthritis. All bony debris was removed. A sponge was placed in the acetabulum. Attention was then turned to the proximal femur where box osteotome was used to gain access to the femoral canal. A canal finder and power lateralizing reamer were utilized to further open. Sequential raspings were taken up to a size 11, which was sunk completely and trial reduction was carried out and a 28+0 mm femoral head was chosen the size to be used with the 44 bipolar cup. Following a trial reduction, the hip was found to be stable to 45 degrees of internal rotation and 90 degrees of flexion with equal leg lengths. The calcar reamer was utilized to smooth the calcar and the instruments and trial components were removed. The hip was thoroughly irrigated with pulsatile irrigation. The canal was irrigated and dried, cement restrictor was placed and [place]os cement was mixed. The size 11 low demand fracture stem was placed with a 9 mm centralizer and this was held in position well. All excess cement was removed and cement hardened. Following insertion of final stem component another trial reduction was carried out and again a +0 neck size was chosen as the size to be used. The final head and neck was impacted into position and the hip was reduced and stablity assess and was found to be stable to 45 degrees of internal rotation and 90 degrees of flexion. The wound was again irrigated. Serenity-incisional soft tissue was injected with the [place] Orthomix which includes a combination of Ropivicaine 0.5% 150mg, Bupivicaine 0.5%/Epinephrine 1:200,000 30ml, Toradol 30mg, Dexamethasone 4mg, Ketamine 10mg, Clonidine 100mcg and NSS 30ml solution. The capsulebwas repaired using #5 fiberwire sutures through drill holes. Following this, the short external rotators were reapproximated to the posterior aspect of the femur also through drill holes and these were tied. Once again the wound was copiously irrigated with sterile saline solution with bacitracin. Fascia was closed using #1 Vicryl [id number] sutures, subcutaneous tissue was closed using 2-0 vicryl, and skin was closed with shantell. Sterile dressings, Silverlon was applied and abduction pillow placed between the legs. The patient tolerated the procedure well and was taken to recovery room in stable condition. Due to the complex nature of the procedure, the entire surgery was performed with the operational assistance of Taz Matos PA-C. The assistant project engineer, under direct supervision, was involved in the actual performance of all aspects of the surgical procedure including patient positioning, hemostasis, tissue retraction, instrument management and wound closure. I attest to the content of the Intraoperative Record and any orders documented therein. Any exceptions are noted below.
--- NOTE | 2018-05-17 18:11 | XRay Report ---
XR hip RT min 2V HISTORY: 82 years-old Female Post-Operative implant position right hip total joint arthroplasty. COMPARISON: Right femur radiographs May 16, 2017 TECHNIQUE: 2 views of the right hip FINDINGS: Right hip total joint arthroplasty appears to be in satisfactory positioning. Demineralized appearanc e of the bones. Expected postsurgical soft tissue swelling and deep tissue air about the right hip wi th lateral skin shantell. IMPRESSION: Right hip total joint arthroplasty with satisfactory alignment. The above report was generated using voice recognition software. It may contain grammatical, syntax o r spelling errors. Electronically signed by: Bharat Nieves M.D. 05/17/2018 6:10 PM
--- NOTE | 2018-05-17 18:21 | Orthopedic Progress Note ---
Date of Service May 17, 2018 Assessment & Plan (1) Closed fracture of right hip: Status post right hip hemiarthroplasty -Ancef x24 -DVT prophylaxis ASA twice daily -Weight-bear as tolerated right lower extremity -Posterior hip precautions -PT/OT, walker for assistance -A.m. labs -Postoperative x-ray demonstrates a well aligned well fixed orthopedic prosthesis without evidence of fracture dislocation. Subjective Post Operative Progress Note Patient seen in PACU, comfortable, denies complaints, pain well controlled, no acute issues. Still feeling the effects of spinal anesthesia. Physical Exam 2 Vital Signs (Past 24 Hours): Last Vital Signs Temp 36.7 C 05/17/18 18:10 Pulse 69 05/17/18 18:10 Resp 16 05/17/18 18:10 BP 118/69 05/17/18 18:10 Pulse Ox 98 05/17/18 18:10 Physical Exam: Physical exam limited secondary to spinal anesthesia, +2 dorsalis pedis pulse, compartment soft, dressing clean dry and intact, abduction pillow in place _ (1) Closed fracture of right hip Encounter type: initial encounter Fracture healing: Qualified Code(s): S72.001A - Fracture of unspecified part of neck of right femur, initial encounter for closed fracture
--- NOTE | 2018-05-17 18:35 | Anesthesiology Progress Note ---
Date of Service May 17, 2018 Anesthesia Post Procedure Vital Signs Vital Signs: Temp Pulse Pulse Resp BP BP Pulse Ox 05/17/18 18:20 69 16 125/60 98 05/17/18 18:10 36.7 C 69 16 118/69 98 05/17/18 18:00 64 18 124/61 100 05/17/18 17:50 65 16 121/61 100 05/17/18 17:42 36.0 C L 67 16 119/62 100 05/17/18 14:52 36.6 C 87 16 156/94 H 95 05/17/18 07:07 36.7 C 82 16 156/82 H 95 05/16/18 23:08 36.7 C 76 15 138/71 95 05/16/18 19:00 36.6 C 83 18 155/81 H 96 Pain Intensity Right Hip: Pain Intensity: 1 Notes Mental Status: alert / awake / arousable Patient Amnestic to Procedure: Yes Nausea / Vomiting: adequately controlled Pain: adequately controlled Airway Patency, RR, SpO2: stable & adequate BP & HR: stable & adequate Neuraxial Anesthesia: was administered and sensory block is resolving Anesthetic Complications: no major complications apparent
[2018-05-17] MEDS ORDERED: COUGH DROP (SUGAR FREE) LOZ 24 LOZ/1 BOX BUCCAL PRN (18:41)
[2018-05-17] MEDS ORDERED: NALOXONE HCL 0.4 MG/1 ML VIAL/CARP IV PRN (18:41)
[2018-05-17] MEDS ORDERED: MoRPHine SULFATE 4 MG/ML 1 ML CARP\\VIAL IV PRN (18:41)
[2018-05-17] MEDS: SENNA 8.6 MG TAB PO SCH (20:45)
[2018-05-17] MEDS: ASPIRIN 325 MG ECTAB PO SCH (20:45)
[2018-05-17] MEDS: DOCUSATE SODIUM/SENNA 50/8.6MG TAB PO SCH (20:46)
[2018-05-17] MEDS ORDERED: ALUMINUM/MAGNESIUM SUSP 30 ML UDC PO STA (20:56)
[2018-05-18] MEDS: SODIUM CHLORIDE 0.9% 1000ML 1,000 ML IV SCH ×3 (03:07→23:10)
[2018-05-18] MEDS: ACETAMINOPHEN 500 MG TAB PO SCH ×3 (05:44→22:10)
[2018-05-18] MEDS: LEVOTHYROXINE SODIUM 100 MCG TABLET PO SCH (05:44)
[2018-05-18] MEDS ORDERED: CEFAZOLIN 2000MG 2,000 MG/15 ML SYR IV SCH (06:00)
[2018-05-18 08:40] LABS: INR 1.1 (0.9-1.1)
[2018-05-18 08:45] LABS: Hematocrit (blood only) 29.1 % (37-47); Hemoglobin 9.8 g/dL (12.0-16.0); Immature Granulocytes # (auto) 0.03 K/uL (0.00-0.02); Immature Granulocytes % (auto) 0.3 %; Lymphocytes # (auto) 0.81 K/uL (1.2-3.4); Lymphocytes % (auto) 6.8 %; Mean Corpuscular Volume 87.1 fL (80-100); Mean Platelet Volume 8.4 fL (7.4-10.4); Monocytes # (auto) 1.17 K/uL (0.11-0.59); Monocytes % (auto) 9.8 %; Neutrophils # (auto) 9.95 K/uL (1.4-6.5); Neutrophils % (auto) 83.1 %; Platelet Count 272 K/uL (130-400); RDW Coefficient of Variation 14.2 % (11.5-14.5); RDW Standard Deviation 45.2 fL (36.4-46.3); Red Blood Count 3.34 M/uL (4.2-5.4); White Blood Count 11.96 K/uL (4.8-10.8)
[2018-05-18 08:52] LABS: Mean Corpuscular Hgb Conc 33.7 g/dL (32-36)
[2018-05-18 08:53] LABS: Albumin Level 2.6 gm/dl (3.4-5.0); BUN Creatinine Ratio 14.7 (10-20); Calcium 8.5 mg/dl (8.5-10.1); Est GFR (African American) 85.4; Est GFR (Non-African American) 73.7; Magnesium 1.7 mg/dl (1.8-2.4); Potassium 3.9 mmol/L (3.5-5.1)
[2018-05-18 08:56] LABS: Albumin Globulin Ratio 0.7 (0.9-2); Bilirubin,Total 0.9 mg/dl (0.2-1); Globulin 3.6 gm/dl (2.5-4.0); Total Protein 6.2 gm/dl (6.4-8.2)
[2018-05-18] MEDS: PRAVASTATIN SOD 20 MG TAB PO SCH (09:00)
[2018-05-18] MEDS: CALCIUM 600MG + VIT D 400 IU TAB PO SCH (09:00)
[2018-05-18] MEDS: ASPIRIN 325 MG ECTAB PO SCH ×2 (09:00→20:14)
--- NOTE | 2018-05-18 09:23 | Orthopedic Progress Note ---
Date of Service May 18, 2018 Assessment & Plan (1) Closed fracture of right hip: Status post right hip hemiarthroplasty POD#1 -Ancef x24 -DVT prophylaxis ASA twice daily -Weight-bear as tolerated right lower extremity -Posterior hip precautions -PT/OT, walker for assistance -A.m. labs - hgb 9.8 -Postoperative x-ray demonstrates a well aligned well fixed orthopedic prosthesis without evidence of fracture dislocation. Subjective Post Operative Progress Note Patient seen sitting up in bed, comfortable, denies complaints, pain well controlled, no acute issues. Physical Exam 2 Vital Signs (Past 24 Hours): Last Vital Signs Temp 36.7 C 05/18/18 07:38 Pulse 83 05/18/18 07:38 Resp 16 05/18/18 07:38 BP 122/76 05/18/18 07:38 Pulse Ox 93 05/18/18 07:38 Physical Exam: RLE NVSI +EHL/FHL/TA/GS SILT grossly, +2 DP pulse, compartments soft NT, dressing with scant dry blood. _ (1) Closed fracture of right hip Encounter type: initial encounter Fracture healing: Qualified Code(s): S72.001A - Fracture of unspecified part of neck of right femur, initial encounter for closed fracture
--- NOTE | 2018-05-18 10:33 | Anesthesiology Progress Note ---
Date of Service May 18, 2018 Anesthesia Post Procedure Vital Signs Vital Signs: Temp Pulse Pulse Pulse Resp BP Pulse Ox 05/18/18 07:38 36.7 C 83 16 122/76 93 05/18/18 02:51 36.3 C L 81 16 113/65 96 05/17/18 23:42 36.6 C 90 16 108/67 96 05/17/18 21:31 36.4 C L 82 17 119/69 97 05/17/18 20:25 36.4 C L 69 16 127/61 97 05/17/18 19:40 36.3 C L 80 18 146/68 H 98 05/17/18 19:12 73 16 134/68 96 05/17/18 18:40 36.3 C L 71 16 123/74 95 05/17/18 18:34 36.3 C L 74 17 123/74 95 05/17/18 18:20 69 16 125/60 98 05/17/18 18:10 36.7 C 69 16 118/69 98 05/17/18 18:00 64 18 124/61 100 05/17/18 17:50 65 16 121/61 100 05/17/18 17:42 36.0 C L 67 16 119/62 100 05/17/18 14:52 36.6 C 87 16 156/94 H 95 Pain Intensity Right Hip: Pain Intensity: 0 Notes Mental Status: alert / awake / arousable and participated in evaluation Patient Amnestic to Procedure: Yes Nausea / Vomiting: adequately controlled Pain: adequately controlled Airway Patency, RR, SpO2: stable & adequate BP & HR: stable & adequate Hydration State: stable & adequate Neuraxial Anesthesia: was administered and sensory block resolved Anesthetic Complications: no major complications apparent and Pt Satisfied with anesthetic care
--- NOTE | 2018-05-18 15:10 | Hospitalist Progress Note ---
Date of Service May 18, 2018 Assessment & Plan (1) Closed right hip fracture: (2) HLD (hyperlipidemia): (3) Hypothyroid: (4) DVT prophylaxis: 82 yo F with PMHx of hypothyroidism, HLD, admitted on May 16, 2018 because of closed right hip fracture associated with mechanical fall. Closed right hip fracture: Status post right hip hemiarthroplasty POD#1, orthopedic on the case, DVT prophylaxis ASA twice daily, Weight-bear as tolerated right lower extremity, Posterior hip precautions, PT/OT, walker for assistance Dyslipidemia, cont pravastatin Hypothyroid: Continue synthroid 100 mcg daily. Continue pain control with tylenol 1000 mg Q8H, morphine sulfate 0.25 mg IV Q2H prn for breakthrough pain. New diagnosed vitamin D deficiency, daughter said the patient using vitamin D 2 at home, 1 to continue on her own I agreed Continue PT OT, and adoption social worker for discharge plan Subjective Sitting up in chair, pain is well controlled, conversational, awake alert orientated, no any complaint, Review of Systems Constitutional: Mild positive weakness, or fatigue Respiratory: no cough, sputum, wheezing, or dyspnea on exertion Cardiac: No chest pain, No orthopnea, Abdomen: No pain, No nausea, No vomiting, No diarrhea, Musculoskeletal: Right hip with limited range of motion because of pain, no calf pain, No problem reported : No dysuria, No urinary frequency, No incontinence, No hematuria Neurologic: No paralysis, No weakness, No numbness/tingling, No vertigo, No balance problems Psychiatric: No depression symptoms, No anhedonism, No anxiety, No insomnia, No substance abuse Heme: No abnormal bleeding/bruising, No clotting problems, No swollen lymph nodes, No night sweats Skin: No rash, No itch, No new/changing skin lesions, No color change, No bleeding Physical Exam 2 Vital Signs (Past 24 Hours): Last Vital Signs Temp 36.8 C 05/18/18 11:55 Pulse 82 05/18/18 11:55 Resp 14 05/18/18 11:55 BP 108/62 05/18/18 11:55 Pulse Ox 99 05/18/18 14:11 Physical Exam: General Appearance: WD/WN, no apparent distress, Eyes: normal inspection, PERRL, EOMI, sclerae normal ENT: normal ENT inspection, hearing grossly normal, pharynx normal Neck: supple, no adenopathy, thyroid normal, no JVD, no carotid bruits, trachea midline Respiratory/Chest: chest non-tender, normal breath sounds, no respiratory distress, no accessory muscle use, breath sounds, rales, wheezing Cardiovascular: regular rate, rhythm, no JVD, no murmur Abdomen: normal bowel sounds, non tender, soft, no organomegaly, Almodovar catheter in place, Extremities: Right hip postop, in dressing, otherwise other joint non-tender, normal inspection, no pedal edema, no calf tenderness, normal capillary refill , pelvis stable, joint has no limited range of motion, capillary refill is normal, Neurologic/Psychiatric: electric wirer II-XII nml as tested, no motor/sensory deficits, alert, normal mood/affect, oriented x 3 Skin: normal color, warm/dry, no rash Lymphatic: no adenopathy Results & Data Laboratory Results Laboratory Results - last 24 hr 05/18/18 05/18/18 05/18/18 08:15 08:15 08:15 WBC 11.96 H RBC 3.34 L Hgb 9.8 L Hct 29.1 L MCV 87.1 MCH 29.3 MCHC 33.7 RDW Std Deviation 45.2 RDW Coeff of Maya 14.2 Plt Count 272 MPV 8.4 Immature Gran % (Auto) 0.3 Neut % (Auto) 83.1 Lymph % (Auto) 6.8 Carver % (Auto) 9.8 Eos % (Auto) 0.0 Baso % (Auto) 0.0 Immature Gran # (Auto) 0.03 H Neut # (Auto) 9.95 H Lymph # (Auto) 0.81 L Carver # (Auto) 1.17 H Eos # (Auto) 0.00 Baso # (Auto) 0.00 PT 11.0 INR 1.1 Sodium 134 L Potassium 3.9 Chloride 101 Carbon Dioxide 26 Anion Gap 7.0 BUN 11 Creatinine 0.75 Est Cr Clr Drug Dosing 47.0 Est GFR ( Amer) 85.4 Est GFR (Non-Af Amer) 73.7 BUN/Creatinine Ratio 14.7 Glucose 113 H Calcium 8.5 Magnesium 1.7 L Total Bilirubin 0.9 AST 26 ALT 19 Alkaline Phosphatase 49 Total Protein 6.2 L Albumin 2.6 L Globulin 3.6 Albumin/Globulin Ratio 0.7 L 05/18/18 08:15 WBC RBC Hgb Hct MCV MCH MCHC RDW Std Deviation RDW Coeff of Maya Plt Count MPV Immature Gran % (Auto) Neut % (Auto) Lymph % (Auto) Carver % (Auto) Eos % (Auto) Baso % (Auto) Immature Gran # (Auto) Neut # (Auto) Lymph # (Auto) Carver # (Auto) Eos # (Auto) Baso # (Auto) PT INR Sodium Cancelled Potassium Cancelled Chloride Cancelled Carbon Dioxide Cancelled Anion Gap Cancelled BUN Cancelled Creatinine Cancelled Est Cr Clr Drug Dosing Cancelled Est GFR ( Amer) Cancelled Est GFR (Non-Af Amer) Cancelled BUN/Creatinine Ratio Cancelled Glucose Cancelled Calcium Cancelled Magnesium Cancelled Total Bilirubin AST ALT Alkaline Phosphatase Total Protein Albumin Globulin Albumin/Globulin Ratio
[2018-05-18] MEDS: SENNA 8.6 MG TAB PO SCH (20:13)
[2018-05-18] MEDS: DOCUSATE SODIUM/SENNA 50/8.6MG TAB PO SCH (20:15)
[2018-05-19] MEDS ORDERED: LEVOTHYROXINE SODIUM 112 MCG TABLET PO SCH (06:30)
[2018-05-19] MEDS: ACETAMINOPHEN 500 MG TAB PO SCH (06:48)
[2018-05-19 07:06] LABS: Hematocrit (blood only) 26.6 % (37-47); Hemoglobin 8.9 g/dL (12.0-16.0); Mean Corpuscular Hgb Conc 33.5 g/dL (32-36); Mean Corpuscular Volume 86.9 fL (80-100); Mean Platelet Volume 8.4 fL (7.4-10.4); Platelet Count 274 K/uL (130-400); RDW Coefficient of Variation 14.4 % (11.5-14.5); RDW Standard Deviation 45.5 fL (36.4-46.3); Red Blood Count 3.06 M/uL (4.2-5.4); White Blood Count 10.06 K/uL (4.8-10.8)
[2018-05-19 07:13] LABS: INR 1.1 (0.9-1.1); Prothrombin Time 10.8 Seconds (9.0-12.0)
[2018-05-19] MEDS: SODIUM CHLORIDE 0.9% 1000ML 1,000 ML IV SCH (07:16)
[2018-05-19 07:43] LABS: Albumin Level 2.6 gm/dl (3.4-5.0); BUN Creatinine Ratio 20.6 (10-20); Calcium 8.3 mg/dl (8.5-10.1); Est GFR (African American) 96.1; Est GFR (Non-African American) 82.9; Potassium 3.5 mmol/L (3.5-5.1)
[2018-05-19 07:46] LABS: Albumin Globulin Ratio 0.7 (0.9-2); Bilirubin,Total 0.6 mg/dl (0.2-1); Globulin 3.7 gm/dl (2.5-4.0); Total Protein 6.3 gm/dl (6.4-8.2)
[2018-05-19] MEDS: CALCIUM 600MG + VIT D 400 IU TAB PO SCH (08:41)
[2018-05-19] MEDS: ASPIRIN 325 MG ECTAB PO SCH (08:41)
[2018-05-19] MEDS: PRAVASTATIN SOD 20 MG TAB PO SCH (08:41)
--- NOTE | 2018-05-19 09:40 | Orthopedic Progress Note ---
Date of Service May 19, 2018 Assessment & Plan (1) Closed fracture of right hip: Status post right hip hemiarthroplasty POD#2 -DVT prophylaxis ASA twice daily -Weight-bear as tolerated right lower extremity -Posterior hip precautions -PT/OT, walker for assistance -A.m. labs - Hgb 8.9 Patient is progressing with her physical therapy and is stable per orthopedics. From our standpoint, she can be transferred over to [facility] when the hospitalist service feels that she is medically stable. Patient seen and examined, agree with above assessment and plan. Subjective Postoperative day 2 status post right bipolar hemiarthroplasty. Patient is currently sitting up in bed reading the paper. She is awake, alert and oriented x3. She states that she was somewhat painful last night and the operative hip but her pain control is much better at this point in time. She had some mild pain in her right heel which also has resolved. No other complaints at this time. Denies shortness of breath, chest pain, lightheadedness. Physical Exam 2 Vital Signs (Past 24 Hours): Last Vital Signs Temp 36.6 C 05/19/18 07:42 Pulse 88 05/19/18 07:42 Resp 18 05/19/18 07:42 BP 99/60 L 05/19/18 07:42 Pulse Ox 95 05/19/18 08:30 Physical Exam: Silverlon dressing is clean, dry, and intact. Thigh is soft and nontender. Calves are soft and nontender. Toes are mobile. And hip is located. No overt erythema over the heels however she states that she does have a mild amount of discomfort on deep palpation of the right heel. _ (1) Closed fracture of right hip Encounter type: initial encounter Fracture healing: Qualified Code(s): S72.001A - Fracture of unspecified part of neck of right femur, initial encounter for closed fracture
--- NOTE | 2018-05-19 14:40 | Discharge Summary ---
Date of Service May 19, 2018 Admission HPI Per Admitting Provider This is a 82 yo F with PMHx of hypothyroidism, HLD, who presents after a mechanical fall. She was attempting a new form of exercise of beach volleyball at [facility], and her sneaker caught on carpeted surface and she fell to the right and hit her head. Patient denies that she hit her head, LOC, other areas of trauma, laceration or abrasions. Patient denies feeling dizzy or lightheaded prior to the fall. Her daughter, Emy Jose , is present at bedside and supports the history. The only medication to note that she takes daily is Synthroid and pravastatin. Patient notes she is was unable to bear weight on the right leg, and was brought in by EMS. Patient denies having any current pain. Pt typically ambulates without assistive devices, no history of smoking, has 2 ounces of wine nearly daily. He has no prior medical history including cardiac or pulmonary issues. Last time the patient was in the hospital was to give to her 56-year-old son. Principal Diagnosis Right hip fracture Discharge Data Allergies Allergy/AdvReac Type Severity Reaction Status Date / Time No Known Drug Allergies Allergy Unknown none Verified 06/08/15 09:45 Chlorine Allergy Unknown chest Uncoded 06/08/15 09:45 congetion, cough Consultations 05/16/18 18:48 Consult Case Management - Discharge Planning Routine Consult Case Management - Discharge Planning Routine Consult Orthopedic Surgery Routine 05/17/18 18:41 Consult Case Management - Discharge Planning Routine Procedures Performed Operation Date: 05/17/18 08:10 Actual Procedures p Right Bipolar Hip Arthroplasty , cemented (Right) - Giancarlo Dc DO Hospital Course (1) Closed right hip fracture: (2) HLD (hyperlipidemia): (3) Hypothyroid: (4) DVT prophylaxis: 82 yo F with PMHx of hypothyroidism, HLD, admitted on May 16, 2018 because of closed right hip fracture associated with mechanical fall. Closed right hip fracture: Status post right hip hemiarthroplasty POD#1, orthopedic on the case, DVT prophylaxis ASA twice daily, Weight-bear as tolerated right lower extremity, Posterior hip precautions, PT/OT, walker for assistance Dyslipidemia, cont pravastatin Hypothyroid: Continue synthroid 100 mcg daily. Continue pain control with tylenol 1000 mg Q8H, morphine sulfate 0.25 mg IV Q2H prn for breakthrough pain. New diagnosed vitamin D deficiency, daughter said the patient using vitamin D 2 at home, I stated Vit D2 50,000 international units orally once per week for six to eight weeks, and then 800 international units of vitamin D3 daily thereafter Continue PT OT, and social work associate for discharge plan Upon discharge S: patient has no complaint, eating breakfast, Review of Systems Constitutional: Mild positive weakness, or fatigue Respiratory: no cough, sputum, wheezing, or dyspnea on exertion Cardiac: No chest pain, No orthopnea, Abdomen: No pain, No nausea, No vomiting, No diarrhea, Musculoskeletal: Right hip with limited range of motion because of pain, no calf pain, No problem reported : No dysuria, No urinary frequency, No incontinence, No hematuria Neurologic: No paralysis, No weakness, No numbness/tingling, No vertigo, No balance problems Psychiatric: No depression symptoms, No anhedonism, No anxiety, No insomnia, No substance abuse Heme: No abnormal bleeding/bruising, No clotting problems, No swollen lymph nodes, No night sweats Skin: No rash, No itch, No new/changing skin lesions, No color change, No bleeding Physical Exam upon discharge: General Appearance: WD/WN, no apparent distress, Eyes: normal inspection, PERRL, EOMI, sclerae normal ENT: normal ENT inspection, hearing grossly normal, pharynx normal Neck: supple, no adenopathy, thyroid normal, no JVD, no carotid bruits, trachea midline Respiratory/Chest: chest non-tender, normal breath sounds, no respiratory distress, no accessory muscle use, breath sounds, rales, wheezing Cardiovascular: regular rate, rhythm, no JVD, no murmur Abdomen: normal bowel sounds, non tender, soft, no organomegaly, Almodovar catheter in place, Extremities: Right hip postop, in dressing, otherwise other joint non-tender, normal inspection, no pedal edema, no calf tenderness, normal capillary refill , pelvis stable, joint has no limited range of motion, capillary refill is normal, Neurologic/Psychiatric: electric blanket wirer II-XII nml as tested, no motor/sensory deficits, alert, normal mood/affect, oriented x 3 Skin: normal color, warm/dry, no rash Lymphatic: no adenopathy Lab data upon discharge Laboratory Results - last 24 hr 01/09/3005/19/18 05/19/18 06:22 06:22 06:22 WBC 10.06 RBC 3.06 L Hgb 8.9 L Hct 26.6 L MCV 86.9 MCH 29.1 MCHC 33.5 RDW Std Deviation 45.5 RDW Coeff of Maya 14.4 Plt Count 274 MPV 8.4 PT 10.8 INR 1.1 Sodium 137 Potassium 3.5 Chloride 104 Carbon Dioxide 27 Anion Gap 6.0 BUN 13 Creatinine 0.63 Est Cr Clr Drug Dosing 56.0 Est GFR ( Amer) 96.1 Est GFR (Non-Af Amer) 82.9 BUN/Creatinine Ratio 20.6 H Glucose 93 Calcium 8.3 L Total Bilirubin 0.6 AST 32 ALT 19 Alkaline Phosphatase 46 Total Protein 6.3 L Albumin 2.6 L Globulin 3.7 Albumin/Globulin Ratio 0.7 L Most important upon discharge: DVT prophylaxis ASA twice daily, Weight-bear as tolerated right lower extremity , Posterior hip precautions, PT/OT, walker for assistance acute blood lost anemia, need to have labs of cbc, bmp, checked in 3 days, I have discussed with patient's daughter about this and remind her to keep an eye on her hemoglobin level she agreed Patient has severe Vitamin deficiency , I stated Vit D2 50,000 international units orally once per week for six to eight weeks, and then 800 international units of vitamin D3 daily thereafter Total Time Total Time Spent Total Time Spent (In Minutes): 35 Discharge Plan Discharge Items Patient Disposition: Transfer Long Term Fac Reason For Visit: RT HIP FRACTURE Discharge Diagnosis: Closed right hip fracture New diagnosed vitamin D deficiency Condition: Fair Discharge Goals: Decrease discomfort, Diagnostic testing, Improve disease control and Improve function Activity: Per 'Additional Instructions' section Weightbearing: Right weightbearing Weightbearing Comment: as tolerated with walker Non-emergency contact: Primary Care Provider and Surgeon Call non-emergency contact if: you have any medication questions and your temperature is above 100.5 Diet: Low Fat Addtl Provider Instructions: you have Closed right hip fracture: Status post right hip hemiarthroplasty POD#2 orthopedic on the case, DVT prophylaxis ASA twice daily, Weight-bear as tolerated right lower extremity, Posterior hip precautions, PT/OT, walker for assistance you have acute blood lsot anemia, need to have labs of cbc, bmp, checked in 3 days you have severe Vitamin deficiency , I stated Vit D2 50,000 international units orally once per week for six to eight weeks, and then 800 international units of vitamin D3 daily thereafter you need to follow up with your primary care physician in 1 week, - take medication as instructed, never overdose or any misuse, or take with alcohol, because misuse of medicine may cause organ damage or , call me , or your primary care physician if have questions of discharge medicaitons. - call your primary care physician, or go to local emergency room if has any fever/chill, chest pain, shortness of breathing, nausea/vomiting/abdominal pain , facial droop/slurry speech/local weakness, or if has any questions. - fall precaution - diet as instructed - you need to follow up with your subspecialist, such as orthopedic surgeon ACTIVITY RECOMMENDATIONS: SELF CARE INSTRUCTIONS AFTER TOTAL HIP REPLACEMENT Until the incision and soft tissues around your hip have healed, there is a possibility that the hip prosthesis could dislocate. A. Observe the following precautions to prevent dislocation: 1. Don't bend your hip greater than 90 degrees. 2. Avoid crossing your legs or ankles while standing or lying. 3. Sit with your feet placed 6 inches apart. 4. When sitting, keep your knees below your hips. Sit on a firm surface, avoid deep, soft chairs and couches. Use an elevated toilet seat in the bathroom. 5. Don't bend over at the waist. Use a long handled shoehorn and a sock aid to help you put on your shoes and socks. A plumbing engineer can help you tile picker objects that are too high or too low to reach. 6. Keep car riding to a minimum for at least one month after surgery. B. Your balance may be shaky for a while. Use crutches or a walker until directed by your doctor. C. Use hand rails when walking on stairs. D. Wear low heeled shoes with non-slip soles. E. Be sure that your floors are free of things that could trip you - throw rugs , electrical cords, small objects. Avoid wet and waxed floors, especially with crutches and canes. F. Try to walk several times a day with rest periods between. G. Continue with all the exercises taught to you in the hospital. Again, make walking a part of your daily routine. SPECIAL CARE INSTRUCTIONS: VERY IMPORTANT TO READ AND REVIEW A. You may still be at risk for phlebitis and blood clots. 1. Wear surgical stockings (IVANA hose) for 2 weeks after surgery to improve circulation and reduce swelling. 2. Take Aspirin 325mg twice daily for 4 weeks or as directed by your doctor. This is your blood thinner. 3. High risk patients may be prescribed a stronger blood thinner if necessary. 4. If you are on Coumadin normally, your family doctor/hard hat diver should monitor your blood work. Expect a phone call the day of or the day after bloodwork is drawn to adjust your dosage. B. You must take antibiotics before having dental work, bladder, bowel and other surgery. Your doctor will provide you with a permanent card to carry describing precautions. C. Call [facility] if you have a fever, redness or swelling around the incision, cloudy drainage from incision, or sudden increase in pain in your hip, not relieved by your regular pain medication. D. Please call the office at if you have any concerns or questions about your operation or recovery. * YOU MAY SHOWER, NO TUB BATHS UNTIL CLEARED BY YOUR DOCTOR. * WEAR IVANA HOSE 20 HOURS PER DAY FOR 2 WEEKS. * YOU SHOULD USE A WALKER OR CRUTCHES FOR 2-4 WEEKS. THIS WILL HELP PREVENT STRAIN ON YOUR HIP MUSCLE AND ALLOW IT TO HEAL PROPERLY. YOU MAY WEAN TO A CANE TOLERATED. * MOST PATIENTS WILL HAVE HOME NURSING FOR THERAPY. IF YOU DECIDE TO DO OUTPATIENT PHYSICAL THERAPY, PLEASE SCHEDULE THIS 3 TIMES PER WEEK. * Silverlon- This is a large adhesive bandage that contains silver ions. This helps your incision heal by fighting off bacteria and protecting it from the outside environment. You are permitted to shower with this dressing. This will remain on your incision for 7 days and then should be removed. Some visible blood or drainage through the dressing window is normal. If there is significant drainage or leaking noted before the 7 days notify your doctor's office immediately. Once removed, keep incision clean and dry. If there is any drainage or redness noted, please call your surgeon. . FOLLOW UP VISIT: If appointment is not already scheduled: Please call [facility] to make a follow-up appointment with Dr Dc 2 weeks after your surgery at . Prescriptions: New sennosides-docusate sodium [Senna with Docusate Sodium] 8.6-50 mg Tablet 2 tab PO HS 30 Days Qty: 60 RF: 0 acetaminophen [Pain Reliever] 500 mg Tablet 1,000 mg PO Q8H 10 Days Qty: 60 RF: 0 levothyroxine [Synthroid] 100 mcg Tablet 100 mcg PO 3XWK 30 Days Qty: 30 RF: 0 aspirin 325 mg Tablet,Delayed Release (Dr/Ec) 325 mg PO BID 42 Days Qty: 84 RF: 0 levothyroxine [Synthroid] 112 mcg Tablet 112 mcg PO 2XWK 30 Days Qty: 30 RF: 0 [id number] [Caltrate 600-D Plus Minerals] 600 mg calcium- 800 unit-50 mg Tablet 1 tab PO DAILY 30 Days Qty: 30 RF: 0 ergocalciferol (vitamin D2) [Vitamin D2] 50,000 unit capsule 50,000 units PO .qweekly Qty: 6 RF: 0 ergocalciferol (vitamin D2) [Vitamin D2] 50,000 unit capsule 50,000 units PO UD Qty: 7 RF: 0 oxycodone 5 mg tablet 5 mg PO Q6H PRN (Reason: pain) 3 Days Qty: 7 RF: 0 Continue pravastatin 40 mg Tablet 40 mg PO DAILY RF: 0 vit C-vit [id number] [Ocuvite] 155-05-9-150 tv-stiv-tf-mg Capsule 1 cap PO DAILY RF: 0 Discontinued levothyroxine 100 mcg Capsule 100 mcg PO DAILY RF: 0 Stand-Alone Forms: [facility], [facility] Discharge Orders: Discharge Order (Routine); Ordered 05/19/18 Ordered By: Jim Abreu Skilled Items Patient informed of condition?: Yes DNR: Yes Discharge Level of Care: Skilled Communicable Disease: No Discharge Prognosis: Stable Admission Data Admit Date/Time: 05/16/18 17:02 Attending Provider: Jim Abreu Admit Provider: Yanni Sewell Primary Care Provider: PCP,NO Other Providers: Yanni Sewell ; Giancarlo Dc Service: Surgical Services Other Interventions: Discharge Summary Assessment (RN) Last Done: 05/19/18 10:38 DC Date/Time DO NOT enter until pt leaves facility: 05/19/18 12:39
== END 2018-05-19 12:39 | DRG 470 ==
LOC: ED 14:50 → SUATTDRO 17:02 → 3N 17:02